=== PATIENT | female | born 1965 | race Caucasian/White ===

== ENCOUNTER 2017-11-08 11:37 | Emergency (ER) | payer OTHER ==
[~2017-11-08] VITALS: Ht 170.2 cm; Wt 85.0 kg
[2017-11-08] MEDS ORDERED: acetaminophen 325mg tablet PO ONE (13:15)
[2017-11-08] MEDS ORDERED: ketorolac trometh inj. 60 MG/2 ML VIAL IM ONE (13:15)
[2017-11-08] MEDS ORDERED: HYDR-3965 PO (14:00)
[2017-11-08 14:11] VITALS: BP 122/88
== END 2017-11-08 14:14 | disposition home or self-care (01) ==
LOC: ER 11:38
DX: S09.90XA Unspecified injury of head, initial encounter (principal); M25.562 Pain in left knee; Z91.040 Latex allergy status; W19.XXXA Unspecified fall, initial encounter; Y93.89 Activity, other specified; Y92.89 Other specified places as the place of occurrence of the external cause; Y99.9 Unspecified external cause status
CPT/HCPCS: 70450; 96372; 99284; J1885